=== PATIENT | male | born 1980 | race Caucasian/White ===

== ENCOUNTER 2018-07-22 14:46 | Observation (INO) | payer OTHER ==
[2018-07-22] MEDS ORDERED: HYDROmorphONE/DILAUDID 2 MG/ML INJ IVP ONE ×2 (14:55→17:58)
[2018-07-22] MEDS ORDERED: NS 1,000 ML IV ONE (14:55)
[2018-07-22] MEDS ORDERED: KETOROLAC 15 MG/1 ML SDV IVP ONE (14:56)
--- NOTE | 2018-07-22 14:59 | EDPHY ---
H & P Time Seen by Provider: 07/22/18 14:57 HPI/ROS: HPI CHIEF COMPLAINT: Low back pain. HISTORY OF PRESENT ILLNESS: 38year-old male, otherwise healthy without any significant medical history presents emergency room with low back pain. Patient presents emergency room with low back pain. He states he did squats this morning did not have any injury. However this afternoon he was on the toilet having a bowel movement and he turned and developed severe low back pain is located in his lumbar region. He denies any saddle anesthesia, denies referred pain, denies pain going down his legs. Denies bowel or bladder incontinence however he was having a bowel movement when this started. Denies any abdominal pain, testicular pain or urinary symptoms. Pain is currently located lumbar spine low region paravertebral without radiation. He describes as 11/21. Received 100 mcg IV fentanyl 2 mg IV Versed in route by EMS. Past Medical History: Denies significant medical history Past Surgical History: Denies significant surgical history Social History: Denies drugs alcohol tobacco. Family History: Noncontributory ROS REVIEW OF SYSTEMS: 10 Systems were reviewed and negative with the exception of the elements mentioned in the history of present illness. Exam Constitutional triage nursing summary reviewed, vital signs reviewed, awake/ alert. Eyes normal conjunctivae and sclera, EOMI, PERRLA. HENT normal inspection, atraumatic, moist mucus membranes, no epistaxis, neck supple/ no meningismus, no raccoon eyes. Respiratory clear to auscultation bilaterally, normal breath sounds, no respiratory distress, no wheezing. Cardiovascular rate normal, regular rhythm, no murmur, no edema, distal pulses normal. Gastrointestinal soft, non-tender, no rebound, no guarding, normal bowel sounds, no distension, no pulsatile mass. Genitourinary no CVA tenderness. Musculoskeletal back exam: Mild tender palpation paravertebral lumbar spine. No midline pain. This is low position L4-L5 region. No leg weakness. No saddle anesthesia. no midline vertebral tenderness, full range of motion, no calf swelling, no tenderness of extremities, no meningismus, good pulses, neurovascularly intact. Skin pink, warm, & dry, no rash, skin atraumatic. Neurologic awake, alert and oriented x 3, AAOx3, moves all 4 extremities equally, motor intact, sensory intact, CN II-XII intact, normal cerebellar, normal vision, normal speech. Psychiatric normal mood/affect. Heme/Lymph/Immune no lymphadenopathy. Differential Diagnosis: Includes but is not limited to in a particular order musculoskeletal back pain, lumbar strain, muscle spasm, disc herniation, annular tear, nerve root compression, sciatica, compression fracture, doubt spinal epidural abscess. Medical Decision Making: Plan for this patient IV establishment blood draw, IV Toradol for pain control, basic blood work, x-ray lumbar spine and re-evaluate. Re-evaluation: The x-ray that was previously done showed possible age-indeterminate compression fracture. CT scan of the lumbar spine was obtained due to the x-ray findings. This shows no evidence of acute fracture. called to me by Dr. Perera I attempted to ambulate the patient however he still has ongoing bad low back pain. Unable to ambulate and get up out of bed. 1800: Patient's x-ray and CT lumbar spine reviewed. No evidence of acute fracture. Given the ongoing severe pain patient need to be admitted the hospital for pain control, MRI of his back. He has no leg weakness no saddle anesthesia. No red flags. Plan for further evaluation observation. Patient is unable to ambulate has severe low back pain. No leg weakness no saddle anesthesia. Plan for re-medication at this time 6:22 p.m.. Additionally plan for MRI lumbar spine. Lumbar spine MRI without contrast for severe back pain shows a disc herniation L3-L4. Source: Patient, EMS Constitutional: Initial Vital Signs Temperature (C) 36.7 C 07/22/18 15:00 Heart Rate 99 07/22/18 15:00 Respiratory Rate 18 07/22/18 15:00 Blood Pressure 112/75 07/22/18 15:00 O2 Sat (%) 94 07/22/18 15:00 O2 Delivery Mode Room Air Allergies/Adverse Reactions: No Known Allergies Allergy (Unverified 07/22/18 15:00) Home Medications: Medication Instructions Recorded Herbals/Supplements -Info Only 1 ea PO DAILY 07/22/18 Medical Decision Making - Data Points Laboratory Results: Laboratory Results 07/22/18 14:46 07/22/18 14:46 Medications Given: Acetaminophen (Tylenol) 1,000 mg PO Q8H [facility] Stop: 01/18/19 20:59 Last Admin: 07/23/18 05:44 Dose: 1,000 mg Cyclobenzaprine HCl (Flexeril) 10 mg PO HS [facility] Stop: 01/18/19 20:59 Last Admin: 07/22/18 21:20 Dose: 10 mg Ketorolac Tromethamine (Toradol) 15 mg IVP Q6HRS [facility] Stop: 07/28/18 00:00 Last Admin: 07/23/18 11:42 Dose: 15 mg Methocarbamol (Robaxin) 1,000 mg PO TID [facility] Stop: 01/19/19 11:44 Last Admin: 07/23/18 11:41 Dose: 1,000 mg Methylprednisolone (Medrol) 8 mg PO BID@0730,2100 [facility] Stop: 07/23/18 21:01 Last Admin: 07/23/18 08:44 Dose: 8 mg Discontinued Medications Dexamethasone (Decadron Injection) 10 mg IVP EDNOW ONE Stop: 07/22/18 18:22 Last Admin: 07/22/18 19:08 Dose: 10 mg Diazepam (Valium) 2.5 mg IVP EDNOW ONE Stop: 07/22/18 15:39 Last Admin: 07/22/18 15:59 Dose: 2.5 mg Hydromorphone HCl (Dilaudid) 0.5 mg IVP EDNOW ONE Stop: 07/22/18 14:56 Last Admin: 07/22/18 15:57 Dose: 0.5 mg Hydromorphone HCl (Dilaudid) 0.5 mg IVP EDNOW ONE Stop: 07/22/18 17:59 Last Admin: 07/22/18 18:04 Dose: 0.5 mg Sodium Chloride (Ns) 1,000 mls @ 0 mls/hr IV EDNOW ONE; Wide Open PRN Reason: Protocol Stop: 07/22/18 14:56 Last Admin: 07/22/18 15:21 Dose: 1,000 mls Influenza Virus Vaccine Quadrival (Flulaval Quad [id number] (6mo+)) 0.5 ml IM .ONCE ONE Stop: 07/22/18 21:01 Last Admin: 07/22/18 21:21 Dose: 0.5 ml Ketorolac Tromethamine (Toradol) 15 mg IVP EDNOW ONE Stop: 07/22/18 14:57 Last Admin: 07/22/18 15:21 Dose: 15 mg Departure - Departure Disposition: [facility] Acute Clinical Impression: Intractable back pain Condition: Fair
[2018-07-22 15:06] LABS: PLATELET COUNT 269 10^3/uL (150-400)
[2018-07-22] MEDS ORDERED: DIAZEPAM 5 MG/ML 1 ML SYR IVP ONE (15:38)
[2018-07-22] MEDS ORDERED: DEXAMETHASONE 10 MG/ML VIAL IVP ONE (18:21)
[2018-07-22] MEDS ORDERED: DEXAMETHASONE 4 MG/ML VIAL ONE (19:05)
[2018-07-22] MEDS ORDERED: ONDANSETRON 4 MG/2 ML VIAL IVP PRN (20:46)
[2018-07-22] MEDS ORDERED: ACETAMINOPHEN 325 MG TAB PO PRN (20:46)
[2018-07-22] MEDS ORDERED: ONDANSETRON DISINTEGRATING 4 MG TAB PO PRN (20:46)
--- NOTE | 2018-07-22 20:50 | PDGENHP ---
History and Physical - Chief Complaint back pain - History of Present Illness 38 yo male who is otherwise healthy and active developed severe back pain today after lifting weights. He felt sore and took some advil. Later in the day, he felt a spasm in his back and then he had to lay down in the hallway, unable to move. He took some Ibuprofen, but was unable to walk and presented to ED. No loss of control of bowel or bladder. In the ED, he received IV dexamethasone, dilaudid, toradol, valium with refractory pain. His pain is currently 2/10 if he doesn't move. Increased pain with any movement. He is admitted for pain control and further management. History Information - Allergies/Home Medication List Allergies/Adverse Reactions: No Known Allergies Allergy (Unverified 07/22/18 15:00) Home Medications: Herbals/Supplements -Info Only 1 ea PO DAILY 07/22/18 [Last Taken Unknown] I have personally reviewed and updated: family history, medical history, social history, surgical history - Past Medical History no pertinent PMH - Surgical History Reports: no pertinent surgical hx - Social History Smoking Status: Never smoked Alcohol Use: Occasionally Drug Use: None Additional social history: , prosecuting attorney Review of Systems Review of Systems: ROS: 10pt was reviewed & negative except for what was stated in HPI & below Physical Exam Physical Exam: Temp Pulse Resp BP Pulse Ox 36.9 C 96 12 113/71 90 L 07/22/18 20:30 07/22/18 20:30 07/22/18 20:30 07/22/18 20:30 07/22/18 20:30 Constitutional: no apparent distress Eyes: PERRL Ears, Nose, Mouth, Throat: moist mucous membranes Cardiovascular: regular rate and rhythym Respiratory: no respiratory distress, clear to auscultation Gastrointestinal: normoactive bowel sounds, soft, non-tender abdomen Skin: warm Musculoskeletal: full muscle strength, other (straight leg raising neg. 5/5 muscle strength proximal LE's b/l. ) Neurologic: AAOx3, other (2+DTR's b/l patella and achilles ) Lab Data & Imaging Review 07/22/18 14:46 07/22/18 14:46 WBC 8.71 10^3/uL (3.80-9.50) 07/22/18 14:46 RBC 4.96 10^6/uL (4.40-6.38) 07/22/18 14:46 Hgb 15.4 g/dL (13.7-17.5) 07/22/18 14:46 Hct 42.4 % (40.0-51.0) 07/22/18 14:46 MCV 85.5 fL (81.5-99.8) 07/22/18 14:46 MCH 31.0 pg (27.9-34.1) 07/22/18 14:46 MCHC 36.3 g/dL (32.4-36.7) 07/22/18 14:46 RDW 12.2 % (11.5-15.2) 07/22/18 14:46 Plt Count 269 10^3/uL (150-400) 07/22/18 14:46 MPV 8.6 fL (8.7-11.7) L 07/22/18 14:46 Neut % (Auto) 60.1 % (39.3-74.2) 07/22/18 14:46 Lymph % (Auto) 30.3 % (15.0-45.0) 07/22/18 14:46 [place] % (Auto) 6.3 % (4.5-13.0) 07/22/18 14:46 Eos % (Auto) 2.5 % (0.6-7.6) 07/22/18 14:46 Baso % (Auto) 0.6 % (0.3-1.7) 07/22/18 14:46 Nucleat RBC Rel Count 0.0 % (0.0-0.2) 07/22/18 14:46 Absolute Neuts (auto) 5.23 10^3/uL (1.70-6.50) 07/22/18 14:46 Absolute Lymphs (auto) 2.64 10^3/uL (1.00-3.00) 07/22/18 14:46 Absolute Monos (auto) 0.55 10^3/uL (0.30-0.80) 07/22/18 14:46 Absolute Eos (auto) 0.22 10^3/uL (0.03-0.40) 07/22/18 14:46 Absolute Basos (auto) 0.05 10^3/uL (0.02-0.10) 07/22/18 14:46 Absolute Nucleated RBC 0.00 10^3/uL (0-0.01) 07/22/18 14:46 Immature Gran % 0.2 % (0.0-1.1) 07/22/18 14:46 Immature Gran # 0.02 10^3/uL (0.00-0.10) 07/22/18 14:46 Sodium 140 mEq/L (135-145) 07/22/18 14:46 Potassium 3.9 mEq/L (3.3-5.0) 07/22/18 14:46 Chloride 103 mEq/L (97-110) 07/22/18 14:46 Carbon Dioxide 27 mEq/l (22-31) 07/22/18 14:46 Anion Gap 10 mEq/L (6-14) 07/22/18 14:46 BUN 17 mg/dL (7-23) 07/22/18 14:46 Creatinine 1.3 mg/dL (0.7-1.3) 07/22/18 14:46 Estimated GFR > 60 07/22/18 14:46 Glucose 89 mg/dL (70-100) 07/22/18 14:46 Calcium 9.3 mg/dL (8.5-10.4) 07/22/18 14:46 Assessment & Plan Assessment: Intractable back pain (Acute) - 2/2 herniated disc, no nerve impingement or radicular symptoms -pain control with toradol, tylenol, prn oxy/dilaudid -muscle relaxers prn -s/p IV dexamethasone, start medrol dose pack in am -PT/OT to assess in am Full code Dispo - obs
[2018-07-22] MEDS ORDERED: DIAZEPAM 5 MG TAB PO PRN (20:54)
[2018-07-22] MEDS ORDERED: HYDROmorphONE/DILAUDID 1 MG/ML INJ IVP PRN (20:58)
[2018-07-22] MEDS ORDERED: CYCLOBENZAPRINE 10 MG TAB PO SCH (21:00)
[2018-07-22] MEDS ORDERED: oxyCODONE IR 5 MG TAB PO PRN (21:02)
[2018-07-22] MEDS: ACETAMINOPHEN 500 MG TAB PO SCH (21:20)
[2018-07-23] MEDS: KETOROLAC 15 MG/1 ML SDV IVP SCH ×4 (05:44→18:10)
[2018-07-23] MEDS: ACETAMINOPHEN 500 MG TAB PO SCH ×2 (05:44→13:05)
[2018-07-23] MEDS ORDERED: methylPREDNISolone 4 MG TAB PO SCH (07:30)
[2018-07-23] MEDS: METHOCARBAMOL 500 MG TAB PO SCH ×2 (11:41→16:18)
--- NOTE | 2018-07-23 12:41 | ASMTCMCOM ---
CM Note CM Note Notes: Pt admitted to hospital after experiencing intractable back pain. May have herniated disc, pt will work with PT/OT. He is otherwise independent, anticipate he will dc home w/support of his when medically stable. CM available for any changes. DC Plan: Independent Date Signed: 07/23/2018 12:40 PM Electronically Signed By:Maame Moya RN
[2018-07-23] MEDS: methylPREDNISolone 4 MG TAB PO SCH ×2 (13:05→18:34)
[2018-07-23 16:16] VITALS: BP 114/65
--- NOTE | 2018-07-23 18:46 | GDS ---
DISCHARGE DIAGNOSES: Low back pain. PHYSICAL EXAM: GENERAL: The patient is alert. VITAL SIGNS: Afebrile at 36.7, pulse 90, respiratory rate 16, blood pressure is 114/65. He is saturating 94% on room air. I have seen and evaluated the patient on the day of discharge. HOSPITAL COURSE: The patient is a 38-year-old male sent to the emergency room after suffering acute onset of low back pain. He was evaluated with a lumbar x-ray as well as lumbar spine CT and MRI. It was noted the patient had a L3-L4 disk dissection with mild bulging. The patient has no neurologica l symptoms and is neurologically intact. He has responded well to Robaxin as well as steroid treatme nt. He is able to ambulate with a walker and get out of bed independently. There are no pending nas dies. DISCHARGE MEDICATIONS: Please refer to EMR form. I have provided the patient a prescription for Medrol Dosepak as well as Robaxin. He will follow up with his primary care physician in the outpatient setting as well as Neurosurgery a s needed. /[id number]/MODL
[2018-07-24] MEDS ORDERED: methylPREDNISolone 4 MG TAB PO SCH ×2 (07:30→21:00)
[2018-07-25] MEDS ORDERED: methylPREDNISolone 4 MG TAB PO SCH (07:30)
[2018-07-26] MEDS ORDERED: methylPREDNISolone 4 MG TAB PO SCH (07:30)
[2018-07-27] MEDS ORDERED: methylPREDNISolone 4 MG TAB PO SCH (07:30)
[2018-07-28] MEDS ORDERED: methylPREDNISolone 4 MG TAB PO SCH (07:30)
== END 2018-07-23 18:45 | disposition home or self-care (01) ==
LOC: F3E 19:40
PROVIDERS: ADMIT Hospitalist; ATTEND Internal Medicine
DX: M54.5 Low back pain (principal); M51.86 Other intervertebral disc disorders, lumbar region; Z23 Encounter for immunization; E86.0 Dehydration
CPT/HCPCS: 72100; 72131; 72148; 90471; 96361; 96374; 96375; 96376; 97161; 97165; 99285; G0378; G0008; J1100; J1170; J1885; J3360